=== PATIENT | male | born 1975 | race African-American/Black ===

== ENCOUNTER 2023-03-07 05:33 | Emergency (ER) | payer SELFPAY ==
[2023-03-07] MEDS ORDERED: Sodium Chloride 0.9% 10 ML Syringe FLUSH ONE (05:52)
[2023-03-07] MEDS ORDERED: Iopamidol 755 Mg/ML 100 ML Bottle IVPUSH ONE (05:52)
[2023-03-07] MEDS ORDERED: Sodium Chloride 0.9% 100 ML IV SCH (06:00)
[2023-03-07 06:03] LABS: BASOPHILS PERCENT AUTO 0.4 % (0.0-1.0); EOSINOPHILS ABSOLUTE AUTO 0.2 K/mm3 (0.0-0.4); EOSINOPHILS PERCENT AUTO 2.5 % (0.0-6.0); HEMOGLOBIN 14.4 gm/dl (14.0-18.0); IMMATURE GRAN ABSOLUTE AUTO 0.02 K/mm3 (0.00-0.05); IMMATURE GRAN PERCENT AUTO 0.3 % (0.0-0.4); LYMPHOCYTES ABSOLUTE AUTO 1.9 K/mm3 (1.0-4.8); LYMPHOCYTES PERCENT AUTO 27.1 % (24.0-44.0); MEAN CORPUSCULAR HEMOGLOBIN 25.3 pg (28.0-32.0); MEAN CORPUSCULAR VOLUME 78.9 fl (83.0-99.0); MONOCYTES ABSOLUTE AUTO 0.5 K/mm3 (0.0-0.8); MONOCYTES PERCENT AUTO 7.4 % (0.0-8.0); NEUTROPHILS ABSOLUTE AUTO 4.3 K/mm3 (1.8-7.7); NEUTROPHILS PERCENT AUTO 62.3 % (41.0-71.0); PLATELET COUNT,PLT 200 K/mm3 (150-400); WHITE BLOOD CELL COUNT,WBC 6.89 K/mm3 (3.9-11.3)
[2023-03-07 06:14] LABS: INR 0.98; PROTHROMBIN TIME 10.5 SECONDS (9.7-12.0)
[2023-03-07 06:17] LABS: PTT,PARTIAL THROMBOPLSTIN TIME 21.9 SECONDS (21.7-31.4)
[2023-03-07] MEDS ORDERED: hydrALAZINE 20 MG/ML SDV IVPUSH ONE (06:17)
[2023-03-07 06:18] LABS: ALBUMIN 3.9 g/dl (3.4-5.0); ANION GAP 13.6 (5-15); BILIRUBIN TOTAL 0.9 mg/dL (0.2-1.0); BUN/CREATININE RATIO 16.7 (14-18); CALCIUM 8.7 mg/dL (8.5-10.1); CREATININE 0.9 mg/dL (0.7-1.3); EST CRCL DRUG DOSING (CG) 115.44 mL/min; POTASSIUM,K 3.6 mEq/L (3.5-5.1)
[2023-03-07 06:20] LABS: D-DIMER QUANTITATIVE 0.66 mg/L (0.19-0.50)
== END 2023-03-07 08:05 ==
LOC: JD.ED 05:33
DX: I77.71 Dissection of carotid artery (principal)
CPT/HCPCS: 36415; 70450; 70496; 70498; 80053; 82947; 84484; 85025; 85379; 85610; 85730; 93005; 96374; 99285; J0360; J3490; 93010